=== PATIENT | female | born 1950 | race Caucasian/White ===

== ENCOUNTER 2018-09-09 11:35 | Emergency (ER) | payer BC, MEDICARE ==
[~2018-09-09] VITALS: Ht 147.3 cm; Wt 53.0 kg
[2018-09-09 12:06] VITALS: BP 153/92
[2018-09-09] MEDS ORDERED: TRAM50TA2 PO (13:07)
== END 2018-09-09 13:43 | disposition home or self-care (01) ==
LOC: ER 11:37
DX: M77.9 Enthesopathy, unspecified (principal); M79.641 Pain in right hand; M79.602 Pain in left arm; M79.89 Other specified soft tissue disorders; M19.90 Unspecified osteoarthritis, unspecified site; Z88.2 Allergy status to sulfonamides; Z79.899 Other long term (current) drug therapy
CPT/HCPCS: 29125; 73130; 99283